=== PATIENT | male | born 1970 | race Caucasian/White ===

== ENCOUNTER 2023-05-24 09:03 | Emergency (ER) | payer BC, SELFPAY ==
[2023-05-24] VITALS (18 sets, daily range): BP systolic 144–215; BP diastolic 106–142; PULSE 52–80; RESP 16–18; TEMP 36.1; O2SAT 94–100
--- NOTE | 2023-05-24 09:16 | ED.GENADULT ---
HPI - General Adult General Time Seen by Provider: 09:30 <Jesusita Rae MD - Last Filed: 06/04/23 08:01> Date Seen: 05/24/23 <Jesusita Rae MD - Last Filed: 06/04/23 08:01> Chief complaint: Shortness of Breath/Dyspnea <Jesusita Rae MD - Last Filed: 06/04/23 08:01> Stated complaint: shortness of breath <Jesusita Rae MD - Last Filed: 06/04/23 08:01> Time Seen by Provider: 05/24/23 09:16 <Jesusita Rae MD - Last Filed: 06/04/23 08:01> Source: patient and RN notes reviewed <Jesusita Rae MD - Last Filed: 06/04/23 08:01> Mode of arrival: wheelchair <Jesusita Rae MD - Last Filed: 06/04/23 08:01> Limitations: no limitations <Jesusita Rae MD - Last Filed: 06/04/23 08:01> History of Present Illness HPI narrative: This 52-year-old male is brought in by his significant other from the [employer] [facility] where they are staying in a RV. His significant other reports that he was acting like this this morning, having difficulty walking. Patient states he is dehydrated. He is keeping his eyes closed, grimacing at times. Denies any pain. States his mouth is dry need something to drink. He states his primary concern is dehydration. His significant other notes he ate a small amount of oatmeal this morning. He is question if he is having pain as he is grimacing at times and turning his head side to side. He thinks he may have been running fevers recently. He states he last drank alcohol couple days ago, smoked marijuana a couple days ago. He then proceeded to tell me that he did some meth a few days ago as well. He does have a history of hypertension but states he has not needed any medication. He reportedly was in senior care a few years ago. His significant other notes that he has had a history of oral pharyngeal or laryngeal cancer, had surgery and treatment for it. She is wondering if there could be recurrence. This was initially treated in [place] per her report. He states he started feeling dehydrated in made him feel short of breath. He is denying feeling short of breath at this time. Indeed his pulse is low in the 50s to low 60s, 100% oxygen on room air. Of note, patient is questioned on his past medical history, past surgeries, medications. He only brought up hypertension. It was later that his significant other remembered the treatment for cancer. <Jesusita Rae MD - Last Filed: 06/04/23 08:01> Related Data Home medications: Previous Rx's Medication Instructions Recorded lisinopril 10 mg tablet 10 mg PO DAILY #14 tabs 05/24/23 <Jesusita Rae MD - Last Filed: 06/04/23 08:01> Allergies/adverse reactions: Allergies Allergy/AdvReac Type Severity Reaction Status Date / Time No Known Drug Allergies Allergy Verified 05/24/23 09:10 <Jesusita Rae MD - Last Filed: 06/04/23 08:01> Review of Systems Status of ROS: Reports: 6 or more systems reviewed and unremarkable except as noted in History and below <Jesusita Rae MD - Last Filed: 06/04/23 08:01> [facility] Medical History: Medical History Hypertension ?I10 - Essential (primary) hypertension (ICD-10) <Jesusita Rae MD - Last Filed: 06/04/23 08:01> Social History: Social History Smoking Status: Current every day smoker What tobacco products do you use: cigarettes How often do you have a drink containing alcohol: monthly or less AUDIT-C Alcohol total score: 1 Non-prescribed substance use: marijuana (any form) and amphetamines/methamphetamines Non-prescribed substance use details: meth 2 days ago <Jesusita Rae MD - Last Filed: 06/04/23 08:01> Exam Const: Vital Signs, click to edit/add: Vital Signs - 24 hr 05/24/23 09:10 05/24/23 09:18 05/24/23 09:30 Temperature 96.9 F L Pulse Rate 73 Pulse Rate [Right Pulse Oximeter] 56 L Respiratory Rate 18 Blood Pressure Blood Pressure [Le ft Upper Arm] 144/112 H Pulse Oximetry 100 99 94 Oxygen Delivery Me od Room Air 05/24/23 09:32 05/24/23 10:00 05/24/23 10:03 Temperature Pulse Rate 52 L 54 L Pulse Rate [Right Pulse Oximeter] Respiratory Rate Blood Pressure 155/106 H 183/121 H Blood Pressure [Le ft Upper Arm] Pulse Oximetry 95 95 Oxygen Delivery Me od 05/24/23 10:30 05/24/23 10:32 05/24/23 11:03 Temperature Pulse Rate 53 L 55 L Pulse Rate [Right Pulse Oximeter] Respiratory Rate Blood Pressure 192/142 H 189/117 H Blood Pressure [Le ft Upper Arm] Pulse Oximetry 97 [facility] 11:33 05/24/23 12:02 05/24/23 12:33 Temperature Pulse Rate Pulse Rate [Right Pulse Oximeter] Respiratory Rate Blood Pressure 197/125 H 178/116 H 201/115 H Blood Pressure [Le ft Upper Arm] Pulse Oximetry [facility] 13:02 05/24/23 13:33 05/24/23 13:39 Temperature Pulse Rate 67 Pulse Rate [Right Pulse Oximeter] Respiratory Rate Blood Pressure 191/130 H 215/142 H Blood Pressure [Le ft Upper Arm] Pulse Oximetry 100 [facility] 14:02 05/24/23 14:21 Temperature Pulse Rate 80 Pulse Rate [Right Pulse Oximeter] Respiratory Rate Blood Pressure 214/136 H Blood Pressure [Le ft Upper Arm] Pulse Oximetry 98 Oxygen Delivery Me thod Thin male keeping his eyes closed rolling his head side to side at times, grimacing. Will open his eyes when ask him to, conjugate gaze with equal and round pupils. Sclera slightly injected but there is no drainage. No periorbital swelling or erythema. Has mild skin erythema which is diffuse, arms actually feel cool but he is not sweaty. Dentition in poor repair, dry mucosa without any traumatic changes voice is not hoarse, is able to speak. Neck is supple, no palpable masses. Lungs are clear with good air entry, no wheezing or crackles, no accessory muscle use, no tachypnea. CV is regular, no murmur, normal S1-S2 no S3-S4. Abdomen is soft, nontender, no rebound or guarding, no organomegaly. He has no lower extremity edema, no calf tenderness. Strength is 5/5 and symmetric, no focal deficits. Does have tattoos but overall no rash outside of the mild facial erythema. <Jesusita Rae MD - Last Filed: 06/04/23 08:01> Vital Signs, click to edit/add: Vital Signs - 24 hr 05/24/23 09:10 05/24/23 09:18 05/24/23 09:30 Temperature 96.9 F L Pulse Rate 73 Pulse Rate [Right Pulse Oximeter] 56 L Respiratory Rate 18 Blood Pressure Blood Pressure [Le ft Upper Arm] 144/112 H Pulse Oximetry 100 99 94 Oxygen Delivery Me thod Room Air 05/24/23 09:32 05/24/23 10:00 05/24/23 10:03 Temperature Pulse Rate 52 L 54 L Pulse Rate [Right Pulse Oximeter] Respiratory Rate Blood Pressure 155/106 H 183/121 H Blood Pressure [Le ft Upper Arm] Pulse Oximetry 95 95 Oxygen Delivery Me thod 05/24/23 10:30 05/24/23 10:32 05/24/23 11:03 Temperature Pulse Rate 53 L 55 L Pulse Rate [Right Pulse Oximeter] Respiratory Rate Blood Pressure 192/142 H 189/117 H Blood Pressure [Le ft Upper Arm] Pulse Oximetry 97 97 Oxygen Delivery Me thod 05/24/23 11:33 05/24/23 12:02 05/24/23 12:33 Temperature Pulse Rate Pulse Rate [Right Pulse Oximeter] Respiratory Rate Blood Pressure 197/125 H 178/116 H 201/115 H Blood Pressure [Le ft Upper Arm] Pulse Oximetry Oxygen Delivery Me thod 05/24/23 13:02 05/24/23 13:33 05/24/23 13:39 Temperature Pulse Rate 67 Pulse Rate [Right Pulse Oximeter] Respiratory Rate Blood Pressure 191/130 H 215/142 H Blood Pressure [Le ft Upper Arm] Pulse Oximetry 100 Oxygen Delivery Me thod 05/24/23 14:02 05/24/23 14:21 Temperature Pulse Rate 80 Pulse Rate [Right Pulse Oximeter] Respiratory Rate Blood Pressure 214/136 H Blood Pressure [Le ft Upper Arm] Pulse Oximetry 98 Oxygen Delivery Me thod <Ness Murphy MD - Last Filed: 05/24/23 14:28> Documenting provider has reviewed patient's vital signs: yes <Jesusita Rae MD - Last Filed: 06/04/23 08:01> Course Course Hospital Course: Will have him on cardiac monitoring and pulse oximetry, give him a L of IV fluids. Would like to see is initial troponin before we allow him to drink. Will get appropriate labs including cardiac labs. This is extremely unlikely to be pulmonary embolus given his oxygenation at 100%, low pulse and no hemodynamic is stability. I unfortunately honestly favor drug use with his admittance of amphetamine use recently as the causative issues of his symptoms. As far as his history of possible head neck cancer, will make sure that he is able to drink here but reviewed with his significant other that this is not something that we would need to work up emergently if he is eating and drinking fine. He certainly should be having routine follow-up and maintenance with this reported history but may not be something that we are going to need to address emergently. We certainly can point in the right direction for routine outpatient follow-up. <Jesusita Rae MD - Last Filed: 06/04/23 08:01> Reevaluation(s) Time of Reevaluation #1: 11:57 <Jesusita Rae MD - Last Filed: 06/04/23 08:01> Reevaluation #1: Patient is alert, acting much more normal when I go in. He states he feels better, is on his 2 L of fluids right now. He is requesting to drink which we will allow him to do so. Reviewed with him that his EKG and blood pressure would support ongoing hypertension. He would consider initiating medication for this. He is feeling much better at this time. Current blood pressure is 197/125, patient most definitely needs to be on antihypertensives and with the LVH seen on his EKG, would recommend initially Giovanny inhibitors to start. Of note, patient is declining nursing staff to bladder scan him to see if he has urine, states there is definitely urine but is not going. Will continue to try to collect UA or intervene if need be but plan at this time is to discharge. Is doubtful that the urinalysis is going to change my outlook on his disposition or overall plans. <Jesusita Rae MD - Last Filed: 06/04/23 08:01> Time of Reevaluation #2: 14:28 <Ness Murphy MD - Last Filed: 05/24/23 14:28> Reevaluation #2: Notes reviewed, spoke with nursing team. Patient has remained clinically stable. Per previous ED provider recommendation, he is to be discharged with a 2 week supply of lisinopril and outpatient follow-up. I have not evaluated patient [id number] but have reviewed chart, labs, nursing notes, vital signs and agree that he is medically stable. <Ness Murphy MD - Last Filed: 05/24/23 14:28> Vital Signs Vital signs: Initial Vital Signs Temperature 96.9 F L 05/24/23 09:10 Temperature Source Temporal Artery Scan 05/24/23 09:10 Pulse Rate 56 L 05/24/23 09:10 Respiratory Rate 18 05/24/23 09:10 Blood Pressure 144/112 H 05/24/23 09:10 Blood Pressure Mean 122 H 05/24/23 09:10 Blood Pressure Position Sitting 05/24/23 09:10 Pulse Oximetry 100 05/24/23 09:10 Oxygen Delivery Method Room Air 05/24/23 09:10 Vital Signs Temperature 96.9 F L 05/24/23 09:10 Pulse Rate 56 L 05/24/23 09:10 Respiratory Rate 18 05/24/23 09:10 Blood Pressure 144/112 H 05/24/23 09:10 Pulse Oximetry 100 05/24/23 09:10 Oxygen Delivery Method Room Air 05/24/23 09:10 Temperature 96.9 F L 05/24/23 09:10 Pulse Rate 71 05/24/23 14:45 Respiratory Rate 16 05/24/23 14:45 Blood Pressure 169/114 H 05/24/23 14:45 Pulse Oximetry 98 05/24/23 14:21 Oxygen Delivery Method Room Air 05/24/23 09:10 <Jesusita Rae MD - Last Filed: 06/04/23 08:01> Initial Vital Signs Temperature 96.9 F L 05/24/23 09:10 Temperature Source Temporal Artery Scan 05/24/23 09:10 Pulse Rate 56 L 05/24/23 09:10 Respiratory Rate 18 05/24/23 09:10 Blood Pressure 144/112 H 05/24/23 09:10 Blood Pressure Mean 122 H 05/24/23 09:10 Blood Pressure Position Sitting 05/24/23 09:10 Pulse Oximetry 100 05/24/23 09:10 Oxygen Delivery Method Room Air 05/24/23 09:10 Vital Signs Temperature 96.9 F L 05/24/23 09:10 Pulse Rate 56 L 05/24/23 09:10 Respiratory Rate 18 05/24/23 09:10 Blood Pressure 144/112 H 05/24/23 09:10 Pulse Oximetry 100 05/24/23 09:10 Oxygen Delivery Method Room Air 05/24/23 09:10 Temperature 96.9 F L 05/24/23 09:10 Pulse Rate 71 05/24/23 14:45 Respiratory Rate 16 05/24/23 14:45 Blood Pressure 169/114 H 05/24/23 14:45 Pulse Oximetry 98 05/24/23 14:21 Oxygen Delivery Method Room Air 05/24/23 09:10 <Ness Murphy MD - Last Filed: 05/24/23 14:28> Medical Decision Making Lab Data Lab results reviewed: Yes I reviewed the patient's lab results <Jesusita Rae MD - Last Filed: 06/04/23 08:01> Labs: Lab Results 05/24/23 05/24/23 05/24/23 Range/Units 09:30 12:25 12:30 WBC 7.09 (4.50-11.00) K/uL RBC 5.92 H (4.30-5.90) m/uL Hgb 18.1 H (13.5-17.5) gm/dL Hct 51.3 (37.0-53.0) % MCV 87 (80-100) fL MCH 31 (26-34) pg MCHC 35 (32-36) gm/dL RDW Coeff of Shayna 12.5 (11.5-15.5) % Plt Count 223 (140-440) K/uL Neut % (Auto) 55.4 (42.0-72.0) % Lymph % (Auto) 31.7 (20-44) % [place] % (Auto) 10.9 (0.0-11.0) % Eos % (Auto) 1.6 (0.0-7.0) % Baso % (Auto) 0.4 (0.0-3.0) % Neut # (Auto) 3.93 (1.7-7.0) K/uL Lymph # (Auto) 2.25 (0.90-2.90) K/uL [place] # (Auto) 0.80 (0.00-0.90) K/UL Eos # (Auto) 0.11 (0.00-0.50) K/uL Baso # (Auto) 0.03 (0.00-0.30) K/uL Abs Immat Gran (auto) 0.00 (0.00-0.30) K/uL Imm/Tot Granulo (auto) 0.0 % Sodium 137 (135-149) mmol/L Potassium 4.1 (3.6-5.1) mmol/L Chloride 100 (96-114) mmol/L Carbon Dioxide 27 (20-32) mmol/L BUN 28 (7-30) mg/dL Creatinine 1.0 (0.5-1.5) mg/dL Estimated GFR 89 ml/min Glucose 93 (60-115) mg/dL Lactate 2.9 H 1.2 (0.5-1.9) mmol/L Calcium 9.7 (8.4-10.6) mg/dL Total Bilirubin 0.8 (0.1-1.5) mg/dL AST 64 H (12-35) U/L ALT 99 H (4-50) U/L Alkaline Phosphatase 70 (40-150) U/L NT-Pro-B Natriuret Pep 819 pg/mL Total Protein 8.4 H (6.0-8.3) g/dL Albumin 4.8 (3.3-5.0) g/dL Urine Opiates Screen (Negative) Ur Oxycodone Screen (Negative) Urine Methadone Screen (Negative) Ur Propoxyphene Screen (Negative) Ur Barbiturates Screen (Negative) U Tricyclic Antidepress (Negative) Ur Phencyclidine Scrn (Negative) Ur Amphetamines Screen (Negative) U Methamphetamines Scrn (Negative) U Benzodiazepines Scrn (Negative) Urine Cocaine Screen (Negative) U Marijuana (THC) Screen (Negative) Ur Drug Screen Comment Ethyl Alcohol < 0.01 L (0.01-0.03) % POC Troponin I 0.02 0.01 (0.01-0.04) ng/ml 05/24/23 Range/Units 13:40 WBC (4.50-11.00) K/uL RBC (4.30-5.90) m/uL Hgb (13.5-17.5) gm/dL Hct (37.0-53.0) % MCV (80-100) fL MCH (26-34) pg MCHC (32-36) gm/dL RDW Coeff of Shayan (11.5-15.5) % Plt Count (140-440) K/uL Neut % (Auto) (42.0-72.0) % Lymph % (Auto) (20-44) % [place] % (Auto) (0.0-11.0) % Eos % (Auto) (0.0-7.0) % Baso % (Auto) (0.0-3.0) % Neut # (Auto) (1.7-7.0) K/uL Lymph # (Auto) (0.90-2.90) K/uL [place] # (Auto) (0.00-0.90) K/UL Eos # (Auto) (0.00-0.50) K/uL Baso # (Auto) (0.00-0.30) K/uL Abs Immat Gran (auto) (0.00-0.30) K/uL Imm/Tot Granulo (auto) % Sodium (135-149) mmol/L Potassium (3.6-5.1) mmol/L Chloride (96-114) mmol/L Carbon Dioxide (20-32) mmol/L BUN (7-30) mg/dL Creatinine (0.5-1.5) mg/dL Estimated GFR ml/min Glucose (60-115) mg/dL Lactate (0.5-1.9) mmol/L Calcium (8.4-10.6) mg/dL Total Bilirubin (0.1-1.5) mg/dL AST (12-35) U/L ALT (4-50) U/L Alkaline Phosphatase (40-150) U/L NT-Pro-B Natriuret Pep pg/mL Total Protein (6.0-8.3) g/dL Albumin (3.3-5.0) g/dL Urine Opiates Screen Negative (Negative) Ur Oxycodone Screen Negative (Negative) Urine Methadone Screen Negative (Negative) Ur Propoxyphene Screen Negative (Negative) Ur Barbiturates Screen Negative (Negative) U Tricyclic Antidepress Negative (Negative) Ur Phencyclidine Scrn Negative (Negative) Ur Amphetamines Screen POSITIVE A (Negative) U Methamphetamines Scrn POSITIVE A (Negative) U Benzodiazepines Scrn Negative (Negative) Urine Cocaine Screen Negative (Negative) U Marijuana (THC) Screen POSITIVE A (Negative) Ur Drug Screen Comment See Note Ethyl Alcohol (0.01-0.03) % POC Troponin I (0.01-0.04) ng/ml <Jesusita Rae MD - Last Filed: 06/04/23 08:01> Lab Results 05/24/23 05/24/23 05/24/23 Range/Units 09:30 12:25 12:30 WBC 7.09 (4.50-11.00) K/uL RBC 5.92 H (4.30-5.90) m/uL Hgb 18.1 H (13.5-17.5) gm/dL Hct 51.3 (37.0-53.0) % MCV 87 (80-100) fL MCH 31 (26-34) pg MCHC 35 (32-36) gm/dL RDW Coeff of Shayan 12.5 (11.5-15.5) % Plt Count 223 (140-440) K/uL Neut % (Auto) 55.4 (42.0-72.0) % Lymph % (Auto) 31.7 (20-44) % [place] % (Auto) 10.9 (0.0-11.0) % Eos % (Auto) 1.6 (0.0-7.0) % Baso % (Auto) 0.4 (0.0-3.0) % Neut # (Auto) 3.93 (1.7-7.0) K/uL Lymph # (Auto) 2.25 (0.90-2.90) K/uL [place] # (Auto) 0.80 (0.00-0.90) K/UL Eos # (Auto) 0.11 (0.00-0.50) K/uL Baso # (Auto) 0.03 (0.00-0.30) K/uL Abs Immat Gran (auto) 0.00 (0.00-0.30) K/uL Imm/Tot Granulo (auto) 0.0 % Sodium 137 (135-149) mmol/L Potassium 4.1 (3.6-5.1) mmol/L Chloride 100 (96-114) mmol/L Carbon Dioxide 27 (20-32) mmol/L BUN 28 (7-30) mg/dL Creatinine 1.0 (0.5-1.5) mg/dL Estimated GFR 89 ml/min Glucose 93 (60-115) mg/dL Lactate 2.9 H 1.2 (0.5-1.9) mmol/L Calcium 9.7 (8.4-10.6) mg/dL Total Bilirubin 0.8 (0.1-1.5) mg/dL AST 64 H (12-35) U/L ALT 99 H (4-50) U/L Alkaline Phosphatase 70 (40-150) U/L NT-Pro-B Natriuret Pep 819 pg/mL Total Protein 8.4 H (6.0-8.3) g/dL Albumin 4.8 (3.3-5.0) g/dL Urine Opiates Screen (Negative) Ur Oxycodone Screen (Negative) Urine Methadone Screen (Negative) Ur Propoxyphene Screen (Negative) Ur Barbiturates Screen (Negative) U Tricyclic Antidepress (Negative) Ur Phencyclidine Scrn (Negative) Ur Amphetamines Screen (Negative) U Methamphetamines Scrn (Negative) U Benzodiazepines Scrn (Negative) Urine Cocaine Screen (Negative) U Marijuana (THC) Screen (Negative) Ur Drug Screen Comment Ethyl Alcohol < 0.01 L (0.01-0.03) % POC Troponin I 0.02 0.01 (0.01-0.04) ng/ml 05/24/23 Range/Units 13:40 WBC (4.50-11.00) K/uL RBC (4.30-5.90) m/uL Hgb (13.5-17.5) gm/dL Hct (37.0-53.0) % MCV (80-100) fL MCH (26-34) pg MCHC (32-36) gm/dL RDW Coeff of Shayan (11.5-15.5) % Plt Count (140-440) K/uL Neut % (Auto) (42.0-72.0) % Lymph % (Auto) (20-44) % [place] % (Auto) (0.0-11.0) % Eos % (Auto) (0.0-7.0) % Baso % (Auto) (0.0-3.0) % Neut # (Auto) (1.7-7.0) K/uL Lymph # (Auto) (0.90-2.90) K/uL [place] # (Auto) (0.00-0.90) K/UL Eos # (Auto) (0.00-0.50) K/uL Baso # (Auto) (0.00-0.30) K/uL Abs Immat Gran (auto) (0.00-0.30) K/uL Imm/Tot Granulo (auto) % Sodium (135-149) mmol/L Potassium (3.6-5.1) mmol/L Chloride (96-114) mmol/L Carbon Dioxide (20-32) mmol/L BUN (7-30) mg/dL Creatinine (0.5-1.5) mg/dL Estimated GFR ml/min Glucose (60-115) mg/dL Lactate (0.5-1.9) mmol/L Calcium (8.4-10.6) mg/dL Total Bilirubin (0.1-1.5) mg/dL AST (12-35) U/L ALT (4-50) U/L Alkaline Phosphatase (40-150) U/L NT-Pro-B Natriuret Pep pg/mL Total Protein (6.0-8.3) g/dL Albumin (3.3-5.0) g/dL Urine Opiates Screen Negative (Negative) Ur Oxycodone Screen Negative (Negative) Urine Methadone Screen Negative (Negative) Ur Propoxyphene Screen Negative (Negative) Ur Barbiturates Screen Negative (Negative) U Tricyclic Antidepress Negative (Negative) Ur Phencyclidine Scrn Negative (Negative) Ur Amphetamines Screen POSITIVE A (Negative) U Methamphetamines Scrn POSITIVE A (Negative) U Benzodiazepines Scrn Negative (Negative) Urine Cocaine Screen Negative (Negative) U Marijuana (THC) Screen POSITIVE A (Negative) Ur Drug Screen Comment See Note Ethyl Alcohol (0.01-0.03) % POC Troponin I (0.01-0.04) ng/ml <Ness Murphy MD - Last Filed: 05/24/23 14:28> Imaging Data Chest x-ray: Attestation: I have reviewed the pertinent imaging results. <Jesusita Rae MD - Last Filed: 06/04/23 08:01> My impression: Do not see any acute pneumonia, no infiltrate, no pneumothorax. Do see 2 nodular areas and will await Radiology over-read. <Jesusita Rae MD - Last Filed: 06/04/23 08:01> Radiologist's impression: [facility] Patient ID:?[id number] Site Patient ID:?[id number]. Site :?[id number] Study:?XRay Chest Portable 1V-05/24/2023 10:22:22 AM Ordering Physician:?Kyra Mc Final Report: INDICATION: SOB last few days, worse when sitting up TECHNIQUE: Chest 1 view COMPARISON: None FINDINGS: No pneumothorax. Mediastinum normal for age. Mild degenerative changes. Bilateral calcified granulomas incidentally noted. IMPRESSION: No acute findings. Dictated by Kwasi Olsen MD @ 05/24/2023 10:56:11 AM (Electronic Signature) <Jesusita Rae MD - Last Filed: 06/04/23 08:01> ECG Data Attestation: I personally reviewed and interpreted this ECG as follows: (Normal sinus rhythm, 60 beats per minute. LVH with strain pattern. QT corrected 478 milliseconds. ) <Jesusita Rae MD - Last Filed: 06/04/23 08:01> Interpretation: Repeat EKG at 12:59 p.m. showing normal sinus rhythm, voltage criteria for LVH. No significant acute change when compared to prior. Note troponins have stayed normal. <Jesusita Rae MD - Last Filed: 06/04/23 08:01> Critical Care Time Critical Care Time Critical Care Time: No <Jesusita Rae MD - Last Filed: 06/04/23 08:01> Discharge Plan Discharge Clinical Impression: Acute dehydration, Methamphetamine use, Hypertension <Jesusita Rae MD - Last Filed: 06/04/23 08:01> Patient Disposition: Home, Self-Care <Jesusita Rae MD - Last Filed: 06/04/23 08:01> Condition: Improved <Jesusita Rae MD - Last Filed: 06/04/23 08:01> Instructions: Dehydration (ED), Methamphetamine Use Disorder (ED), Hypertension (ED) <Jesusita Rae MD - Last Filed: 06/04/23 08:01> Additional Instructions: You most definitely have ongoing issues with your blood pressure and hypertension. You really need to be on a medication based on your EKG changes that show thickened heart muscle from hypertension as well as your blood pressure readings here. Alcohol and drug use including methamphetamines certainly can increase her risk of elevating your blood pressure further. I have given you medicine to take for your blood pressure, may need further medications or increases in this and it is imperative you follow-up in clinic. You need a recheck within 2 weeks, will need to have your kidney functions rechecked. A small percentage of people will actually have worsening potassium and kidney function on these medicines but overall they are protective in helpful for the vast majority who take them. Thus, the reason it is so important for you to follow-up. <Jesusita Rae MD - Last Filed: 06/04/23 08:01> Activity Level: Activity as Tolerated <Jesusita Rae MD - Last Filed: 06/04/23 08:01> Activity as Tolerated <Ness Murphy MD - Last Filed: 05/24/23 14:28> Discharge Diet: Heart Healthy (2 gm sodium, low fat) <Jesusita Rae MD - Last Filed: 06/04/23 08:01> Heart Healthy (2 gm sodium, low fat) <Ness Murphy MD - Last Filed: 05/24/23 14:28> Prescriptions: New lisinopril 10 mg tablet 10 mg PO DAILY Qty: 14 0RF <Jesusita Rae MD - Last Filed: 06/04/23 08:01> Stand Alone Forms: [facility] Info Instructions <Jesusita Rae MD - Last Filed: 06/04/23 08:01>
--- NOTE | 2023-05-24 09:40 | CRLHL7_ITS ---
For Patients: As a result of the Cures Act, medical imaging exams and procedure reports are released immediately into your electronic medical record. You may view this report before your referring provider. If you have questions, please contact your health care provider. INDICATION: SOB last few days, worse when sitting up TECHNIQUE: Chest 1 view COMPARISON: None FINDINGS: No pneumothorax. Mediastinum normal for age. Mild degenerative changes. Bilateral calcified granulomas incidentally noted. IMPRESSION: No acute findings. Dictated by Kwasi Olsen MD @ 05/24/2023 10:56:11 AM (Electronically Signed)
[2023-05-24 09:49] LABS: Troponin, Point-of-Care* 0.02 ng/ml (0.01-0.04)
[2023-05-24] MEDS: 0.9 % SODIUM CHLORIDE 1000 ml 1,000 ML IV (09:54)
[2023-05-24 09:59] LABS: Basophils Absolute Auto 0.03 K/uL (0.00-0.30); Basophils Percent Auto 0.4 % (0.0-3.0); Eosinophils Absolute Auto 0.11 K/uL (0.00-0.50); Eosinophils Percent Auto 1.6 % (0.0-7.0); Hematocrit 51.3 % (37.0-53.0); Hemoglobin* 18.1 gm/dL (13.5-17.5); Lymphocytes Absolute Auto 2.25 K/uL (0.90-2.90); Lymphocytes Percent Auto 31.7 % (20-44); Mean Corpuscular HGB Conc 35 gm/dL (32-36); Mean Corpuscular Hemoglobin 31 pg (26-34); Mean Corpuscular Volume 87 fL (80-100); Monocytes Percent Auto 10.9 % (0.0-11.0); Neutrophils Absolute Auto 3.93 K/uL (1.7-7.0); Neutrophils Percent Auto 55.4 % (42.0-72.0); Platelet Count* 223 K/uL (140-440); RDW Coefficient of Variation % 12.5 % (11.5-15.5); Red Blood Count 5.92 m/uL (4.30-5.90); White Blood Count* 7.09 K/uL (4.50-11.00)
[2023-05-24 10:00] LABS: Slide Review Reflex No
[2023-05-24 10:02] LABS: Lactate* 2.9 mmol/L (0.5-1.9)
[2023-05-24 10:23] LABS: Albumin* 4.8 g/dL (3.3-5.0); Chloride* 100 mmol/L (96-114); Sodium* 137 mmol/L (135-149)
[2023-05-24 10:24] LABS: Potassium* 4.1 mmol/L (3.6-5.1)
[2023-05-24 10:26] LABS: Alanine Aminotransferase* 99 U/L (4-50); Alkaline Phosphatase* 70 U/L (40-150); Aspartate Amino Transferase* 64 U/L (12-35); Bilirubin Total* 0.8 mg/dL (0.1-1.5); Blood Urea Nitrogen* 28 mg/dL (7-30); Carbon Dioxide* 27 mmol/L (20-32); Estimated Glomerular Filt Rate 89 ml/min; Glucose* 93 mg/dL (60-115); Total Protein* 8.4 g/dL (6.0-8.3)
[2023-05-24 10:27] LABS: Calcium* 9.7 mg/dL (8.4-10.6)
[2023-05-24 10:35] LABS: Ethanol* < 0.01 % (0.01-0.03)
[2023-05-24 10:36] LABS: NT Pro B Type NatriureticPept* 819 pg/mL
[2023-05-24] MEDS: LACTATED RINGERS 1000 ML 1,000 ML IV (11:08)
--- NOTE | 2023-05-24 11:59 | ED.NURSE ---
pt last BP was 197/125 and that it has been elevating sense triage, notified provider to see if we should intervene, provider stated I will include BP management info in the discharge instructions no further orders recieved
[2023-05-24] MEDS: lisinopriL 10 MG TABLET PO (12:11)
[2023-05-24 12:30] LABS: Lactate* 1.2 mmol/L (0.5-1.9)
[2023-05-24 12:54] LABS: Troponin, Point-of-Care* 0.01 ng/ml (0.01-0.04)
[2023-05-24 13:58] LABS: Amphetamine Screen Urine POSITIVE (Negative); Barbiturate Screen Urine Negative (Negative); Benzodiazepines Screen Urine Negative (Negative); Cannabinoid Screen Urine POSITIVE (Negative); Cocaine Screen Urine Negative (Negative); Methadone Screen Urine Negative (Negative); Methamphetamines Screen Urine POSITIVE (Negative); Opiate Screen Urine Negative (Negative); Oxycodone Screen Urine Negative (Negative); Phencyclidine Screen Urine Negative (Negative); Tricyclic Antidepressant Urine Negative (Negative)
== END 2023-05-24 14:42 | disposition home or self-care (01) ==
PROVIDERS: Family Medicine; Emergency Provider Family Medicine
DX: E86.0 Dehydration (principal); F15.20 Other stimulant dependence, uncomplicated; I10 Essential (primary) hypertension
CPT/HCPCS: 36415; 71045; 80053; 80306; 82077; 83605; 83880; 84484; 85025; 93005; 94761; 99284; 99285; A9270; J7030; J7120